=== PATIENT | female | born 1945 | race Asian ===

== ENCOUNTER 2019-11-22 22:21 | Emergency (ER) | payer OTHER ==
[~2019-11-22] VITALS: Ht 162.6 cm; Wt 102.5 kg
[2019-11-22 22:29] VITALS: BP 141/63; TEMP 98
[2019-11-22 22:48] LABS: PLATELET COUNT 175 K/uL (152-353)
[2019-11-22 23:05] LABS: POTASSIUM 4.1 mmol/L (3.6-5.2)
[2019-11-23] MEDS ORDERED: DOCU SOFT100 MG PO (01:21)
[2019-11-23] MEDS ORDERED: GABA300C2 PO (01:22)
[2019-11-23] MEDS ORDERED: ELIQUIS5 MG PO (01:22)
[2019-11-23] MEDS ORDERED: HALO5INJ3 IM (01:24)
[2019-11-23] MEDS ORDERED: HYDRALAZINE25 MG PO (01:25)
[2019-11-23] MEDS ORDERED: FURO20TA67 PO (01:26)
[2019-11-23] MEDS ORDERED: FEMARA2.5 MG PO (01:26)
[2019-11-23] MEDS ORDERED: LEVEMIR FL100 UNIT/M SC (01:27)
[2019-11-23] MEDS ORDERED: MELATONIN3 M1 PO (01:28)
[2019-11-23] MEDS ORDERED: COZAAR100 MG PO (01:28)
[2019-11-23] MEDS ORDERED: METO100T37 PO (01:29)
[2019-11-23] MEDS ORDERED: RISP1TAB PO (01:30)
[2019-11-23] MEDS ORDERED: THERA-M PO (01:31)
[2019-11-23] MEDS ORDERED: TRULICITY1.5 MG/0.5 SC (01:33)
== END 2019-11-22 23:40 | disposition still patient (30) ==
LOC: ED 22:21
PROVIDERS: Hospitalist
DX: F20.89 Other schizophrenia (principal); F03.91 Unspecified dementia, unspecified severity, with behavioral disturbance; Z11.59 Encounter for screening for other viral diseases; R06.02 Shortness of breath; Z04.6 Encounter for general psychiatric examination, requested by authority
CPT/HCPCS: 36415; 80053; 85027; 87635; 93005; 94664; 99285; J1630; U0003